=== PATIENT | male | born 1955 | race Caucasian/White ===

== ENCOUNTER → 2017-03-31 | Outpatient (CLI) | payer OTHER ==
[~2017-03-31] MED LIST: AMLODIPINE BESYL5 MG PO; ASPIRIN PO; CHOLESTEROL PO; IRON PO; MULTI-VITAMIN PO; POTASSIUM PO; VITAMIN B PO; VITAMIN D PO; VITAMIN D2000 UNIT PO
== END | disposition home or self-care (01) ==
LOC: CSSDAY 11:00
DX: M81.0 Age-related osteoporosis without current pathological fracture (principal)
CPT/HCPCS: 96365; 96374; J3489